=== PATIENT | male | born 1990 | race Caucasian/White ===

== ENCOUNTER 2018-10-26 21:58 | Emergency (ER) | payer BC ==
[~2018-10-26] VITALS: Ht 170.2 cm; Wt 82.1 kg
[2018-10-26] MEDS ORDERED: Cleocin HCl300 MG PO (23:28)
== END 2018-10-27 00:50 | disposition home or self-care (01) ==
LOC: ER 21:58
DX: S91.331A Puncture wound without foreign body, right foot, initial encounter (principal); W21.31XA Struck by shoe cleats, initial encounter; F17.210 Nicotine dependence, cigarettes, uncomplicated
CPT/HCPCS: 90471; 90714; 99283-25

== ENCOUNTER → 2022-07-22 | Outpatient (CLI) | payer BC ==
[~2022-07-22] MED LIST: Cleocin HCl300 MG PO
== END | disposition home or self-care (01) ==
LOC: LAB SHORT 14:53 → LAB 14:53
DX: J03.90 Acute tonsillitis, unspecified (principal)
CPT/HCPCS: 87081